=== PATIENT | female | born 1965 | race Caucasian/White ===

== ENCOUNTER 2019-02-13 08:34 | Inpatient (IN) | payer OTHER ==
[~2019-02-13] VITALS: Ht 165.1 cm; Wt 129.3 kg
[2019-02-13 09:12] LABS: BASO % 0.5 % (0.0-2.0); EOS # 0.1 (0.0-0.7); EOS % 0.6 % (0-4.0); GRAN # 5.7 (1.4-6.5); GRAN % 65.9 % (42.2-75.2); HEMATOCRIT 43.6 % (37.0-47.0); HEMOGLOBIN 14.6 g/dl (12.5-16.0); LYMPH # 2.3 (1.2-3.4); LYMPH % 26.7 % (20.0-51.0); MEAN CELL VOLUME 88 fl (80.0-100.0); MEAN CORPUSCULAR HEMOGLOBIN 29 pg (27.0-31.0); MEAN CORPUSCULAR HGB CONC 34 g/dl (33.0-37.0); MEAN PLATELET VOLUME 10.6 fl (7.4-10.4); MONO # 0.5 (0.1-0.6); MONO % 5.8 % (1.7-9.3); PLATELET COUNT 214 K/mm3 (130-400); RED BLOOD COUNT 4.98 M/mm3 (4.10-5.30); REDCELL DISTRIBUTION WIDTH-CV 12.2 % (11.5-14.5)
[2019-02-13 09:23] LABS: ALBUMIN 3.9 gm/dL (3.5-5.0); C-REACTIVE PROTEIN 4.3 mg/dL (0.0-0.9); CALCIUM 9.4 mg/dL (8.4-10.2); CREATININE, serum 0.68 mg/dL (0.52-1.25); TOTAL PROTEIN 7.5 gm/dL (6.4-8.2)
[2019-02-13] MEDS ORDERED: GLUCOPHAGE500 MG/TAB PO (11:10)
[2019-02-13] MEDS ORDERED: GLUCOTROL XL5 MG/TAB PO (11:10)
[2019-02-13] MEDS ORDERED: HCTZ 25MG TAB25 MG PO (11:11)
[2019-02-13] MEDS ORDERED: LIPITOR 10MG10 MG PO (11:11)
[2019-02-13] MEDS ORDERED: PROAIR HFA0.09 MG/AC IH (11:12)
[2019-02-13] MEDS ORDERED: RT ADVAIR 128 DISKUS IH (11:12)
[2019-02-13] MEDS ORDERED: ALBUTEROL0.83 MG/ML IH (11:13)
[2019-02-13] MEDS ORDERED: MUCINEX 60600 MG/TA1 PO (11:13)
[2019-02-13] MEDS ORDERED: NATURAL POTASS595 MG (11:14)
[2019-02-13] MEDS ORDERED: CLEOCIN HC150 MG/CAP (11:15)
[2019-02-13] MEDS ORDERED: LASIX 20MG TABL20 MG PO (11:15)
[2019-02-13] MEDS ORDERED: NAPROXEN 3375 MG/TAB PO (11:16)
[2019-02-13 13:00] VITALS: BP 121/48; PULSE 73; TEMP 98.4
--- NOTE | 2019-02-13 13:50 | NUR ---
PT ARRIVED VIA GURNEY ACCOMPANIED BY NR. PT IS A/O X4, HAS PAIN RATED AT 4/10, THAT IS BURNING TO LLE. AREA ON LEFT LOWER EXTREMITY, ON AYALA AREA LARGE BLACK AREA, SKIN AROUND IT IS RED, AND WARM. ALSO, TENDER TO TOUCH. PT ADVISES THAT SHE DRINKS TWO CUPS OF COFFEE A DAY AND EIGHT DIET PEPSIs A DAY. PT IS RESTING IN BED WITH LLE ELEVATED ON A PILLOW. PT HAS NO OTHER NEEDS AT THIS TIME. CALL LIGHT WITHIN REACH.
[2019-02-13 16:16] VITALS: PULSE 74; TEMP 98.8
[2019-02-13 16:18] VITALS: BP 102/44
[2019-02-13 16:36] VITALS: BP 134/62; PULSE 63; TEMP 98.4
--- NOTE | 2019-02-13 17:31 | NUR ---
PT IS IN BED WITH HOB ELEVATED TO 15 DEGREE ANGLE, AND LLE ELEVATED ON PILLOW. PT REQUESTED PAIN MEDICATION BECAUSE PAIN HAS INCREASED TO A 7/10 THAT IS STILL BURNING AND AT TIME SHOOTS PAIN EITHER UP HER LEG OR DOWN, TRAMADOL WAS GIVEN FOR THE PAIN. PT IS PLEASANT AND COOPERATIVE. IV FLUIDS RUNNING. CALL LIGHT WITHIN REACH.
--- NOTE | 2019-02-13 18:02 | NUR ---
PT SEEN BY ORTHO AND HE ADVISED THAT HE WAS NOT GOING TO DO ANYTHING TONIGHT AND SHE CAN GO AHEAD AND EAT. CALLED RACHEAL MERINO AND SHE GAVE ORDERS FOR AN ADA DIET.
--- NOTE | 2019-02-13 18:43 | NUR ---
PT REFUSES TO USE SCDs.
[2019-02-13 19:30] VITALS: BP 96/37; PULSE 80; TEMP 98
--- NOTE | 2019-02-13 20:30 | NUR ---
INitial shift assessment done- states pain to LLE 07/08 , Up to bathroom, using cane or walker when up. Will get Tramadol as ordered- Left cisneros area with large black eschar shinnecock- very red around edges with edema to LLE-- elevated on pillow when in bed. IV fluids of NS at 75cc/hr- getting IV antibiotics Zosyn and Vancomycin, following blood sugars every 4 hrs with sliding scale
[2019-02-13 23:31] VITALS: BP 117/68; PULSE 84; TEMP 98.2
--- NOTE | 2019-02-14 01:20 | NUR ---
pt requested tx. after tx pt states she can breathe easier after tx
[2019-02-14 03:52] VITALS: BP 117/59; PULSE 77; TEMP 97.7
--- NOTE | 2019-02-14 05:47 | NUR ---
Has been up to bathoom numerous times during the night-- states she normally gets up often during the night, states has a "tilted" bladder, has been medicated with Tramadol twice during the night for LLE pain. Left lower leg edematous, black eschar area look about same size as start of shift, reddness around the area is increased slightly, VSS
--- NOTE | 2019-02-14 06:20 | NUR ---
Pain to LLE is 9/10- pt very uncomfortable- agrees to take the Morphine that is ordered- leg elevated on pillow
[2019-02-14 06:21] LABS: BASO % 0.4 % (0.0-2.0); EOS # 0.1 (0.0-0.7); EOS % 1.4 % (0-4.0); GRAN # 3.9 (1.4-6.5); GRAN % 55.8 % (42.2-75.2); HEMATOCRIT 40.2 % (37.0-47.0); HEMOGLOBIN 13.4 g/dl (12.5-16.0); LYMPH # 2.6 (1.2-3.4); LYMPH % 36.6 % (20.0-51.0); MEAN CELL VOLUME 87 fl (80.0-100.0); MEAN CORPUSCULAR HEMOGLOBIN 29 pg (27.0-31.0); MEAN CORPUSCULAR HGB CONC 33 g/dl (33.0-37.0); MEAN PLATELET VOLUME 10.4 fl (7.4-10.4); MONO # 0.4 (0.1-0.6); MONO % 5.4 % (1.7-9.3); PLATELET COUNT 211 K/mm3 (130-400); RED BLOOD COUNT 4.61 M/mm3 (4.10-5.30); REDCELL DISTRIBUTION WIDTH-CV 12.3 % (11.5-14.5)
[2019-02-14 06:30] LABS: CALCIUM 8.8 mg/dL (8.4-10.2); CREATININE, serum 0.49 mg/dL (0.52-1.25); POTASSIUM 3.6 mmol/L (3.4-5.0)
--- NOTE | 2019-02-14 08:30 | NUR ---
Initial assessment completed. Drainage noted to the left lower ext., thick, yellow and more prevelant than the days prior. red area to the lft leg was marked per this nurse and date. An additional wound culture was obtained. Pain up and down with a high of 8/10, PRN pain medication as needed. THe call light is in place and the patient calls for assistance as needed.
[2019-02-14 08:47] VITALS: BP 94/42; PULSE 76; TEMP 97.9
--- NOTE | 2019-02-14 11:02 | NUR ---
TED and TED student met with the patient to discuss discharge plan. The patient lives in [place] with three of her children. They are 12, 13, 15. She reports their godparents are watching them while she is here. She reports independence with ADLs and does not have any DME. The patient receives primary care at the [facility] in [place] and she receives her medications at the [facility] in [place]. The patient reports difficulties affording her insulin. She states that [facility] has helped with prescription assistance for the insulin in the past. The patient is self pay. The patient reports that she has tried to apply for Medicaid. TED student consulted financial counselor, Erna. Erna to meet with the patient. The patient does not have advanced directives, but she was interested in obtaining a form for DPOA-HC. TED provided. The patient plans to return home with her family upon discharge. SW to continue to follow to ensure a safe discharge.
[2019-02-14 13:13] VITALS: BP 93/48; PULSE 87; TEMP 98.5
[2019-02-14 17:57] VITALS: BP 130/56; PULSE 87; TEMP 99.1
--- NOTE | 2019-02-14 19:20 | NUR ---
Report given to WIN Montelongo. No change throughout the shift. Up in the recliner with her feet elevated. The call light is in reach.
[2019-02-14 20:05] VITALS: BP 121/45; PULSE 89; TEMP 98.6
--- NOTE | 2019-02-14 21:04 | NUR ---
Pt sitting up in recliner, wound open to air, covered wound with 2 Aquacell AG and wrapped with gauze to retain, shift assessment complete, left Pt call light in reach.
[2019-02-14 23:38] VITALS: BP 126/58; PULSE 84; TEMP 98.3
--- NOTE | 2019-02-15 02:08 | NUR ---
PT CALLED AND ASKED FOR TX. PT STATES SHE FEELS BETTER AFTER TX
[2019-02-15 03:32] VITALS: BP 119/51; PULSE 82; TEMP 98.8
--- NOTE | 2019-02-15 05:31 | NUR ---
Pt slept some during the night, she did have some C/O pain during the night and pain medications were administered for relief, wound area on leg has been weeping more during the night, VS have remained stable.
[2019-02-15 06:47] LABS: BASO % 0.5 % (0.0-2.0); EOS # 0.1 (0.0-0.7); EOS % 1.9 % (0-4.0); GRAN % 53.1 % (42.2-75.2); HEMOGLOBIN 12.4 g/dl (12.5-16.0); LYMPH # 2.2 (1.2-3.4); LYMPH % 38.3 % (20.0-51.0); MEAN CELL VOLUME 88 fl (80.0-100.0); MEAN CORPUSCULAR HEMOGLOBIN 29 pg (27.0-31.0); MEAN CORPUSCULAR HGB CONC 33 g/dl (33.0-37.0); MEAN PLATELET VOLUME 10.1 fl (7.4-10.4); MONO # 0.3 (0.1-0.6); MONO % 5.9 % (1.7-9.3); PLATELET COUNT 206 K/mm3 (130-400); REDCELL DISTRIBUTION WIDTH-CV 12.3 % (11.5-14.5)
[2019-02-15 06:57] LABS: CALCIUM 8.8 mg/dL (8.4-10.2); CREATININE, serum 0.49 mg/dL (0.52-1.25); POTASSIUM 3.8 mmol/L (3.4-5.0)
[2019-02-15 08:03] VITALS: BP 108/68; PULSE 77; TEMP 98.7
--- NOTE | 2019-02-15 09:45 | NUR ---
Patient resting at this time. States that she is very uncomfortable with dressing intact to LLE. Requesting a shower and then states she is refusing to have dressing placed back to leg. Will make MD aware of patient request. Call light intact; meds given and patient has no other needs at this time
[2019-02-15 11:29] VITALS: BP 124/49; PULSE 75; TEMP 98
--- NOTE | 2019-02-15 14:54 | NUR ---
TED contacted Luz, with [employer], to inquire what services they can provide for patient's with no insurance. Luz reports that they are now unable to provide free samples to patients. TED to continue to follow to help with medication assistance.
[2019-02-15 15:35] VITALS: BP 121/58; PULSE 78; TEMP 98.5
--- NOTE | 2019-02-15 17:22 | NUR ---
Dr. Cintron here to see patient. Observation; palpitation; and checking of wound bed done. Patient very tearful and in pain following examination. [place] 1 tab given for discomfort. Patient asked to see PT this afternoon as she "shoo'd them away this AM. PT here and ambulated with patient in hallway. Patient will need a front wheeled walker; psychologist social made aware. This afternoon patient's friend here. They inquired about length of stay (according to Dr. Cintron's note 24-48 hrs); She has no insurance and unsure how she will be able to afford her insulin; let alone dressing changes and a walker. Patient also stated that she has only used insulin pens and knows that she can not afford them when she goes home. Education provided to assist with the start of Diabetes Education. She has no other questions at this time. Patient has been emotional throughout the day.
--- NOTE | 2019-02-15 21:03 | NUR ---
Patient assessed at this time. Complains of level 8 pain to LLE, described as throbbing. Given 2 [place], PRN per orders. LLE with redness and warmth. BLE with 2+ edema. Dressing to LLE intact. Dressing pulled off. Yellow drainage present. Site has redness and warmth. Necrosis present. Cleansed and new dressing applied, ABD pad. Pedal pulses present and equal bilaterally. Diabetic education provided to patient. Denies having any questions or concerns at this time. Sitting up in recliner watching TV at this time. Call light is within reach.
[2019-02-15 21:47] VITALS: BP 114/42; PULSE 74; TEMP 97.8
[2019-02-16 01:25] VITALS: BP 100/44; BP 99/28; PULSE 72; TEMP 97.9
--- NOTE | 2019-02-16 02:48 | NUR ---
Patient complained of level 7 pain to LLE around 0100. Given 2 [place] PRN for pain. Resting in bed with eyes closed at this time. Voices no other needs or concerns. Call light is within reach.
[2019-02-16 05:46] VITALS: BP 113/46; PULSE 72; TEMP 98.5
--- NOTE | 2019-02-16 06:28 | NUR ---
Patient took shower. Afterwards, complained of nausea. Given PRN Zofran per orders. New dressing placed to LLE. Area continues to be very tender to touch. Redness, warmth, and swelling continues. Denies having any other pain or discomfort at this time. Resting in bed. Call light is within reach.
--- NOTE | 2019-02-16 08:49 | NUR ---
Pt A&O x3. Up in chair eating breakfast. Insulin not required at this time. Shift assessment charted. Denies any further needs at this time.
[2019-02-16 08:52] VITALS: BP 110/59; PULSE 66; TEMP 98.2
[2019-02-16] MEDS ORDERED: DOXYCYCLINE 10100 MG PO (09:38)
[2019-02-16] MEDS ORDERED: GLUCOTROL XL5 MG/TAB PO (09:38)
[2019-02-16] MEDS ORDERED: GLUCOPHAGE500 MG/TAB PO (09:40)
[2019-02-16] MEDS ORDERED: ULTRAM 50MG TAB50 MG PO (09:40)
[2019-02-16] MEDS ORDERED: ALBUTEROL0.83 MG/ML IH ×2 (09:40→11:39)
--- NOTE | 2019-02-16 09:58 | NUR ---
Pt is awake and A/Ox4, sitting up in recliner. Pt speaking with Dr. Ford about discharge later today. Dressing to LLE is intact and changed this morning by WIN Cheema. Sharlene [facility] student assisting with AM cares.
[2019-02-16 12:43] VITALS: BP 108/57; PULSE 69; TEMP 98.2
--- NOTE | 2019-02-16 13:18 | NUR ---
TED and TED student attended clinical rounds. The patient is to discharge back home today, 02/16. The hospitalist discussed therapies recommendation of a front wheeled walker and then the need for wound care and diabetes education. The patient reports that she would need a walker, but is unable to afford one, due to not having insurance. A financial assistance application was completed by our financial counselor with the patient. TED presented and explained the patient choice form for DME. The patient chose to to receive her walker through [facility], due to [facility] being able help her through the financial assistance program. The patient choice form was signed by the patient and she was provided a copy. TED then contacted and faxed the patient's walker order to Renard at [facility]. [facility] delivered the walker to the patient's room. TED also scheduled an appointment for the patient at diabetes education at [facility] on 02/23 at 1000. TED informed the community service specialist. The patient also had concerns about being able to afford her medications. TED priced the patient's prescriptions at her preferred pharmacy, [facility] in [place]. The total was $92.87. TED informed the patient and the patient reports that she is unable to afford that. TED then provided the patient with a med voucher to [facility] for her Tramadol, Doxycycline, Metformin, Albuterol, and Glipizide. The total was $69.23. TED faxed the med voucher and scripts to Bunny at [facility]. The med voucher and scripts were also provided to the patient. The patient is to discharge back home today, 02/16. A follow up appointment was scheduled on 02/21 at [facility]. No additional needs at this time.
--- NOTE | 2019-02-16 13:20 | NUR ---
Pt was discharged home from hospital. All discharge instructions and paperwork was reviewed with pt who expressed understanding. Medications reviewed, voucher for scripts given. Saline lock removed, catheter tip intact. Pt was escorted out of facility by staff.
--- NOTE | 2019-02-16 13:50 | NUR ---
Primary nurse was assisted with [id number] patient care by [facility] ADN kinsey Tsai and [facility] ADN Anu Brooks RN-BC.
== END 2019-02-16 13:36 | disposition home or self-care (01) | DRG 300 ==
LOC: COL.ER 08:34 → MEDICAL 09:49
PROVIDERS: Physician Assistant; ADMIT Internal Medicine
DX: I96 Gangrene, not elsewhere classified (principal); L03.116 Cellulitis of left lower limb; Z68.42 Body mass index [BMI] 45.0-49.9, adult; E11.52 Type 2 diabetes mellitus with diabetic peripheral angiopathy with gangrene; T63.331A Toxic effect of venom of brown recluse spider, accidental (unintentional), initial encounter; B95.61 Methicillin susceptible Staphylococcus aureus infection as the cause of diseases classified elsewhere; E11.65 Type 2 diabetes mellitus with hyperglycemia; J44.9 Chronic obstructive pulmonary disease, unspecified; I10 Essential (primary) hypertension; E78.5 Hyperlipidemia, unspecified; Z87.891 Personal history of nicotine dependence; E66.9 Obesity, unspecified
CPT/HCPCS: 99223-AI; 99231-AI; 99239; J0696; J1650; J1815; J2270; J2405; J2543; J3370; J7030; J7050

== ENCOUNTER 2020-09-27 06:43 | Day surgery (SDC) | payer MEDICAID ==
[~2020-09-27] VITALS: Ht 165.1 cm; Wt 120.3 kg
[~2020-09-27 06:43] MED LIST: ALBUTEROL0.83 MG/ML IH; CLEOCIN HC150 MG/CAP; DOXYCYCLINE 10100 MG PO; GLUCOPHAGE500 MG/TAB PO; GLUCOTROL XL5 MG/TAB PO; HCTZ 25MG TAB25 MG PO; LASIX 20MG TABL20 MG PO; LIPITOR 10MG10 MG PO; MUCINEX 60600 MG/TA1 PO; NAPROXEN 3375 MG/TAB PO; NATURAL POTASS595 MG; PROAIR HFA0.09 MG/AC IH; RT ADVAIR 128 DISKUS IH; ULTRAM 50MG TAB50 MG PO
[2020-09-27] MEDS ORDERED: HCTZ 25MG TAB25 MG PO (07:02)
[2020-09-27] MEDS ORDERED: GLUCOPHAGE1000 MG PO (07:02)
[2020-09-27] MEDS ORDERED: HUMALOG100 U/ML SQ (07:04)
[2020-09-27] MEDS ORDERED: LEVEMIR FLEX100 U/ML SQ (07:04)
[2020-09-27] MEDS ORDERED: GLUCOTROL10 MG PO (07:05)
[2020-09-27 07:21] VITALS: BP 136/82; PULSE 77; TEMP 98.1
[2020-09-27 08:50] VITALS: BP 130/77; PULSE 78
--- NOTE | 2020-09-27 08:50 | NUR ---
Patient brought back to bay 2 via cart. Patient states she needs to use restroom. Ambulated to bathroom with one assist. IV infusing to right hand without difficulty. Patient brought back to bay recliner. Placed on monitors, vital signs stable. Patient states she had some gas discomfort. Patient requests diet soda and crackers. Warm blanket provided, will continue to monitor.
[2020-09-27 09:05] VITALS: BP 119/75; PULSE 79
--- NOTE | 2020-09-27 09:05 | NUR ---
Patient tolerating food and drink without difficulty. MD at bedside to review results. Call warner within reach. Will continue to monitor.
[2020-09-27 09:20] VITALS: BP 124/65; PULSE 70
--- NOTE | 2020-09-27 09:20 | NUR ---
Patient states she feels ready to go home at this time. Called brother for ride home. IV removed, intact. Discharge instructions reviewed with patient. Patient to get dressed at this time. Will continue to monitor.
--- NOTE | 2020-09-27 09:45 | NUR ---
Patient brought down to lobby via wheel chair. Brother at front door to drive patient home. All belongings in hand.
== END 2020-09-27 09:45 | disposition home or self-care (01) ==
LOC: SDCO 06:43
DX: K21.00 Gastro-esophageal reflux disease with esophagitis, without bleeding (principal); K29.30 Chronic superficial gastritis without bleeding; K63.3 Ulcer of intestine; K92.1 Melena; E78.5 Hyperlipidemia, unspecified; K64.0 First degree hemorrhoids; J44.9 Chronic obstructive pulmonary disease, unspecified; E11.42 Type 2 diabetes mellitus with diabetic polyneuropathy; K76.0 Fatty (change of) liver, not elsewhere classified; F17.210 Nicotine dependence, cigarettes, uncomplicated; Z88.1 Allergy status to other antibiotic agents; Z88.8 Allergy status to other drugs, medicaments and biological substances; Z79.4 Long term (current) use of insulin; Z90.710 Acquired absence of both cervix and uterus; Z90.49 Acquired absence of other specified parts of digestive tract; G89.29 Other chronic pain; G47.33 Obstructive sleep apnea (adult) (pediatric)
CPT/HCPCS: J1815; J2704; J7030